=== PATIENT | male | born 1940 | race Caucasian/White ===

== ENCOUNTER → 2016-10-15 | Outpatient (CLI) | payer MEDICARE, OTHER ==
[~2016-10-15] MED LIST: ACIT25CA PO; ALBU14.76 NEB; AMLO10TA57 PO; BUDE0.5A NEB; CELE100C79 PO; ESOM40CA24 PO; FLUT1DIS31 IH; OMEP20TA11 PO; POTA20TA68 PO; SIMV10TA76 PO
--- NOTE | 2016-10-15 11:08 | DI ---
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 No consolidative pneumonia. There is no pleural effusion or pneumothorax. The heart size, mediastinal contours and pulmonary vascularity are unchanged. Bilateral shoulder replacements. New severe compression fracture of the mid thoracic spine, possibly T6 with a vertebra plana appearance. IMPRESSION: 1. Severe emphysema. No focal pneumonia. 2. New severe mid thoracic compression fracture. .
== END ==
LOC: IMA 10:14
PROVIDERS: ATTEND Internal Medicine Hematology & Oncology
DX: C44.89 Other specified malignant neoplasm of overlapping sites of skin (principal); D47.2 Monoclonal gammopathy; C44.319 Basal cell carcinoma of skin of other parts of face; J43.9 Emphysema, unspecified; S22.050A Wedge compression fracture of T5-T6 vertebra, initial encounter for closed fracture